=== PATIENT | male | born 1975 | race Caucasian/White ===

== ENCOUNTER 2018-11-16 12:33 | Emergency (ER) | payer MEDICAID ==
[~2018-11-16] VITALS: Ht 172.7 cm; Wt 89.5 kg
[2018-11-16 13:21] VITALS: BP 149/79; Ht 172.7 cm; Wt 89.5 kg
[2018-11-16 14:13] LABS: RED CELL DISTRIBUTION WIDTH 13.4 % (11.5-14.5)
[2018-11-16 14:29] LABS: CALCIUM 9.4 mg/dL (8.5-10.1); CARBON DIOXIDE 28.6 mmol/L (21-32); CREATININE SERUM 1.4 mg/dL (0.7-1.3); POTASSIUM SERUM 3.8 mmol/L (3.5-5.1)
[2018-11-16 14:43] LABS: BASOPHIL % 0.3 % (0-2); PLATELET COUNT 235 x10^3mcL (130-400)
== END 2018-11-16 15:30 | disposition home or self-care (01) ==
LOC: ED 12:33
PROVIDERS: Emergency Medicine
DX: G44.209 Tension-type headache, unspecified, not intractable (principal); R07.89 Other chest pain; I10 Essential (primary) hypertension
CPT/HCPCS: 36415; J1885; Q0092

== ENCOUNTER 2018-11-18 08:19 | Emergency (ER) | payer MEDICAID ==
[~2018-11-18] VITALS: Ht 172.7 cm; Wt 91.2 kg
[2018-11-18 08:30] VITALS: BP 151/70; Ht 172.7 cm; Wt 91.2 kg
== END 2018-11-18 11:27 | disposition home or self-care (01) ==
LOC: ED 08:19
DX: R91.1 Solitary pulmonary nodule (principal); I10 Essential (primary) hypertension

== ENCOUNTER 2019-03-15 16:07 | Emergency (ER) | payer MEDICAID ==
[~2019-03-15] VITALS: Ht 172.7 cm; Wt 89.4 kg
[2019-03-15 16:14] VITALS: Ht 172.7 cm; Wt 89.4 kg
[2019-03-15 16:45] LABS: BASOPHIL % 0.9 % (0-2); PLATELET COUNT 294 x10^3mcL (130-400); RED CELL DISTRIBUTION WIDTH 12.4 % (11.5-14.5)
[2019-03-15 16:52] LABS: CALCIUM 9.5 mg/dL (8.5-10.1); CARBON DIOXIDE 28.8 mmol/L (21-32); CHLORIDE SERUM 103 mmol/L (98-107); CREATININE SERUM 1.2 mg/dL (0.7-1.3); GFR1 > 60 mL/min; GLUCOSE SERUM 94 mg/dL (74-106); POTASSIUM SERUM 3.7 mmol/L (3.5-5.1); SODIUM SERUM 140 mmol/L (136-145)
[2019-03-15 16:57] LABS: ALBUMIN 4.1 g/dL (3.4-5.0); ALKALINE PHOSPHATASE 81 U/L (46-116); ALT/SGPT 40 U/L (16-63); AST/SGOT 12 U/L (15-37); BILIRUBIN TOTAL 0.73 mg/dL (0.20-1.00); TOTAL PROTEIN, SERUM 8.5 g/dL (6.4-8.2)
[2019-03-15 19:34] VITALS: BP 128/78
== END 2019-03-15 19:34 | disposition home or self-care (01) ==
LOC: ED 16:07
DX: R10.84 Generalized abdominal pain (principal); I10 Essential (primary) hypertension
CPT/HCPCS: 36415

== ENCOUNTER 2019-07-12 16:39 | Emergency (ER) | payer MEDICAID ==
[~2019-07-12] VITALS: Ht 172.7 cm; Wt 91.4 kg
[2019-07-12 16:52] VITALS: Ht 172.7 cm; Wt 91.4 kg
[2019-07-12 17:59] LABS: BASOPHIL % 0.7 % (0-2); PLATELET COUNT 283 x10^3mcL (130-400)
[2019-07-12 18:10] LABS: CALCIUM 8.9 mg/dL (8.5-10.1); CHLORIDE SERUM 101 mmol/L (98-107); CREATININE SERUM 1.3 mg/dL (0.7-1.3); GFR1 > 60 mL/min; GLUCOSE SERUM 96 mg/dL (74-106); POTASSIUM SERUM 3.4 mmol/L (3.5-5.1); SODIUM SERUM 140 mmol/L (136-145)
[2019-07-12 18:15] LABS: ALBUMIN 4.1 g/dL (3.4-5.0); ALKALINE PHOSPHATASE 82 U/L (46-116); ALT/SGPT 41 U/L (16-63); AST/SGOT 14 U/L (15-37); BILIRUBIN TOTAL 0.69 mg/dL (0.20-1.00); LIPASE 94 IU/L (73-393); TOTAL PROTEIN, SERUM 8.2 g/dL (6.4-8.2)
[2019-07-12 18:21] LABS: microscopic required? NO
[2019-07-12 18:33] LABS: UA SPECIFIC GRAVITY 1.015 (1.005-1.035); urine erythrocyte NEGATIVE (NEGATIVE)
[2019-07-12 21:33] VITALS: BP 128/77
== END 2019-07-12 21:33 | disposition home or self-care (01) ==
LOC: ED 16:39
PROVIDERS: Emergency Medicine
DX: K52.9 Noninfective gastroenteritis and colitis, unspecified (principal); I10 Essential (primary) hypertension
CPT/HCPCS: J2270; J2405; J7030